=== PATIENT | male | born 1995 | race Caucasian/White ===

== ENCOUNTER → 2016-10-27 | Outpatient (CLI) | payer OTHER ==
[~2016-10-27] MED LIST: AUGM875T PO; ZOFR4TAB3 SL
[2016-10-27 12:54] LABS: BLOOD, URINE NEG (NEG); GLUCOSE,URINE NEG (NEG); KETONE, URINE NEG (NEG); NITRITE,URINE NEG (NEG); URINE COLOR LIGHT-YELLOW (YELLW/STRAW)
[2016-10-27 13:11] LABS: ANION GAP 4 MEQ/L (5-15); AST (GOT) 26 U/L (15-37); BICARBONATE 32.8 MEQ/L (21.0-32.0); BLOOD UREA NITROGEN 8 MG/DL (7-18); CHLORIDE 101 MEQ/L (98-107); GLOMERULAR FILTRATION RATE 86 ML/MIN (>89); POTASSIUM 3.9 MEQ/L (3.5-5.1); SODIUM (NA) 138 MEQ/L (136-145)
[2016-10-27 13:15] LABS: ALKALINE PHOSPHATASE 83 U/L (45-117); ALT (GPT) 60 U/L (12-78); CREATINE KINASE 570 U/L (39-308); TOTAL BILIRUBIN ADULT 0.5 MG/DL (0.2-1.0)
== END ==
LOC: PLAB 10:50
PROVIDERS: ATTEND Family Medicine
DX: M62.82 Rhabdomyolysis (principal)
CPT/HCPCS: 80053; 81001; 82550; 82552

== ENCOUNTER → 2016-11-03 | Outpatient (CLI) | payer OTHER | LOC: PLAB 08:49 | PROVIDERS: ATTEND Family Medicine | DX: M62.82 Rhabdomyolysis (principal) | CPT/HCPCS: 82550 ==